=== PATIENT | male | born 1980 | race Caucasian/White ===

== ENCOUNTER 2016-11-12 16:43 | Emergency (ER) | payer OTHER ==
[~2016-11-12] VITALS: Ht 182.9 cm; Wt 97.7 kg
[2016-11-12 16:45] VITALS: BP 134/96; PULSE 104; RESP 14; O2SAT 100
--- NOTE | 2016-11-12 17:33 | DRSVH ---
PROCEDURE: X-RAY RIGHT HIP COMPLETE, MINIMUM TWO VIEWS ([id number]) INDICATIONS: injury TECHNIQUE: 2 views of the hip were acquired. COMPARISON: None. FINDINGS: Bones: No fractures or dislocations. No suspicious bony lesions. The visualized pelvic ring appear s intact. Soft tissues: No suspicious soft tissue calcifications or masses. IMPRESSION: No visualized acute fracture or dislocation. However, if clinical concern and/or pain pe rsist, short interval imaging followup in 7-10 days is recommended, as occult injury cannot be defini tively excluded. Dictated by: Amanda Jauregui M.D. on 11/12/2016 at 17:31 Approved by: Amanda Jauregui M.D. on 11/12/2016 at 17:32
--- NOTE | 2016-11-12 19:38 | ED.REPORT ---
HPI-Extremity Problem Lower Date of Service Nov 12, 2016 ED Provider: Mic Hodges PA-C Girish is a 36-year-old male history of type II diabetes who presents with chief complaint of right hip pain. Patient reports falling down a [place] embankment approximately 10 feet yesterday and striking a tree. He believes he dislocated his right hip because there was "knot" on the anterior aspect of the joint. He reports tying a rope around a tree and "pulling it back into place." He was then able to walk 4-5 miles back to his car. Patient states his primary care provider felt he should be evaluated in the emergency department after looking at his x-rays. He denies hitting his head, losing consciousness, injuring his neck. Denies numbness, weakness in the leg. Nursing Notes Stated Complaint: HIP PAIN-SENT BY DR PONCE Chief Complaint: Extremity Trauma Nursing Notes Reviewed: Yes Allergies: Coded Allergies: Contrast Media (Verified Allergy, Severe, 11/12/16) General Time Seen by MD: 19:22 Chief Complaint Hip injury right Past Medical History Past Medical History DM 2 Review of Systems Review of Systems Note: Negative unless stated otherwise in history of present illness Physical Exam General: Well appearing, well developed, well nourished, no acute distress. Right hip: Normal to inspection, no redness, bruising. They reduced range of motion in flexion, external rotation, internal rotation Right knee: Nontender full range of motion. Right foot/ankle: Nontender, full range of motion, DP and PT pulses intact, sensation intact. Head: Atraumatic, normocephalic. Eyes: No scleral icterus or injection. No discharge. Vision grossly intact. ENT: Voice clear, hearing grossly intact. Respiratory: No respiratory distress, no increased work of breathing. Speaks in complete sentences. Skin: Warm and dry. Neurological: Antalgic gait. Grossly nonfocal. Psychological: alert and oriented. Speech appropriate, linear and logical. Behavior appropriate. Initial Vital Signs Vital Signs (First) Date Time Temp Pulse Resp B/P Pulse Ox O2 Delivery O2 Flow Rate FiO2 11/12/16 16:45 36.4 104 14 134/96 100 Room Air Initial VS: Vital signs abnormal (mild tachycardia) Re-Eval/Medical Decision Med Decision/Clinical Course There is a 6-year-old male with a history of DM 2 presents with chief complaint of right hip pain after falling rock embankment striking tree. He denies other injuries. He states that his right hip was dislocated as evidenced by not on the anterior aspect. He reset by tying a rope around a tree and pulling. He reports walking 45 [place]. He was seen at [facility], where he states that the physician felt that he needed further evaluation or to department. Physical examination is reassuring. The patient is able to bear weight on the hip and walks with an antalgic gait. His has slightly reduced range of motion in flexion, internal/external rotation. It is normal to inspection and mildly tender to palpation. Circulation sensation is intact distally. X-ray of the hip is normal. I discussed this case with Dr. Alvarado. We do not suspect fracture. I also consulted with , who advises no further imaging and will see the patient in clinic. I discussed this with the patient who understands and agrees with the plan. Advised [id number] analgesia, provide emergent return precautions. Consultation : Referral / Consult Name: Mac Alfaro MD Note: Advises no further imaging, will see patient in clinic. Discharge & Departure Impression: Primary Impression: Hip pain, right Disposition: Home Discharge Condition All VS Reviewed: Yes Condition: Stable Additional Instructions: Evaluation for right hip pain in the emergency department. X-rays reveal no abnormality, his treatment and physical is encouraging. I believe you are stable and safe to be discharged home. Rest the affected limb as much as possible. The pain is best treated with 800 mg of ibuprofen (Advil, Motrin) every 6 hours, or 1000 mg of acetaminophen ( Tylenol) every 6 hours. These drugs can be taken at the same time for more severe pain. I will provide referral for orthopedic follow-up. Please contact 's office tomorrow to arrange follow-up in the near future. Return to the emergency department for any new or worsening symptoms including worsening pain, new weakness or numbness in the limb. Referrals: Mac Alfaro MD EDSupervising Provider for APC: Evan Alvarado MD copies to: Mac Alfaro MD, Seth PA-C Nov 12, 2016 19:38
[2016-11-12 20:20] VITALS: BP 126/93; PULSE 98; O2SAT 100
== END 2016-11-12 20:21 | disposition home or self-care (01) ==
LOC: SED 16:43
DX: M25.551 Pain in right hip (principal); E11.9 Type 2 diabetes mellitus without complications; W17.89XA Other fall from one level to another, initial encounter; Y93.01 Activity, walking, marching and hiking; Y92.89 Other specified places as the place of occurrence of the external cause; Y99.8 Other external cause status; Z91.041 Radiographic dye allergy status